=== PATIENT | male | born 1975 | race Caucasian/White ===

== ENCOUNTER 2024-03-20 17:24 | Inpatient (IN) | payer OTHER, SELFPAY ==
[2024-03-20 18:00] VITALS: BMI 37.8
[2024-03-20] MEDS ORDERED: Ondansetron PF 4 MG/2 ML Vial IVP PRN (18:30)
[2024-03-20] MEDS ORDERED: Acetaminophen 650 MG Suppository PR PRN (19:36)
[2024-03-20] MEDS ORDERED: Acetaminophen 325 MG TAB PO PRN (19:36)
[2024-03-20] MEDS: Sodium Chloride 0.9% 1,000 ML IV SCH (20:07)
[2024-03-20] MEDS: Morphine 4 MG/ML VIAL SLOW IVP PRN (20:07)
[2024-03-20] MEDS ORDERED: Ipratropium/Albuterol 3 ML NEB NEB PRN (20:13)
[2024-03-20] MEDS: Pantoprazole 40 MG VIAL IVP SCH (21:55)
[2024-03-21 03:58] LABS: #Eosinphils 0.31 10x3/uL (0.0-0.5); #Neutrophils 5.01 10x3/uL (1.5-8.4); %Basophils 1.2 % (0.0-2.0); %Eosinophils 3.7 % (0.0-6.0); %Lymphocytes 25.7 % (18.0-47.0); %Monocytes 9.5 % (0.0-10.0); %Neutrophils 59.7 % (40.0-75.0); Hematocrit 44.7 % (38.8-50.0); Mean Corpuscular HGB CONC 33.6 g/dL (32.0-36.0); Mean Corpuscular Hemoglobin 30.4 pg (27.0-33.0); Mean Corpuscular Volume 90.7 fL (81.2-95.1); Mean Platelet Volume 9.7 fL (7.4-10.4); Platelet Count 238 10x3/uL (150-450); RBC Distribution Width 12.6 % (11.5-14.5); Red Blood Cell (RBC) Count 4.93 10x6/uL (4.32-5.72); White Blood Cell (WBC) Count 8.4 10x3/uL (3.5-10.5)
[2024-03-21 04:08] LABS: Anion Gap 11 mmol/L (10-20); BUN (Urea Nitrogen) 12 mg/dL (8.9-20.6); Calc. Creatinine Clearance 162 mL/min (70-130); Calcium 8.9 mg/dL (7.8-10.44); Carbon Dioxide 25 mmol/L (22-29); Chloride 103 mmol/L (98-107); Estimated GFR 107; Glucose 104 mg/dL (70-105); Sodium 135 mmol/L (136-145)
[2024-03-21] MEDS: Sodium Chloride 0.9% 1,000 ML IV SCH (07:16)
[2024-03-21] MEDS ORDERED: Lorazepam 2 MG/ML VIAL IM PRN (10:28)
[2024-03-21] MEDS ORDERED: Ondansetron ODT 4 MG TAB PO PRN (10:28)
[2024-03-21] MEDS ORDERED: Electrolyte Replacement Protocol 1 EACH FS SCH (10:30)
[2024-03-21] MEDS ORDERED: Ipratropium/Albuterol 3 ML NEB NEB PRN (10:32)
[2024-03-21] MEDS: Multivit, Therapeutic 1 TAB PO SCH (11:46)
[2024-03-21] MEDS: Thiamine HCl 200 MG/2 ML VIAL SLOW IVP SCH (11:46)
[2024-03-21] MEDS: Folic Acid 1 MG TAB PO SCH (11:46)
[2024-03-21] MEDS: Lactated Ringer's 1,000 ML IV SCH (11:46)
[2024-03-21] MEDS: Lorazepam 1 MG TAB PO PRN (12:13)
[2024-03-21] MEDS ORDERED: hydrALAZINE 25 MG TAB PO PRN (14:52)
[2024-03-21] MEDS: Pantoprazole 40 MG VIAL IVP SCH (20:11)
[2024-03-22] MEDS ORDERED: Morphine 2 MG/ML VIAL SLOW IVP PRN (01:04)
[2024-03-22 04:36] LABS: #Basophils 0.09 10x3/uL (0.0-0.2); #Eosinphils 0.31 10x3/uL (0.0-0.5); #Monocytes 0.85 10x3/uL (0.0-1.1); #Neutrophils 6.28 10x3/uL (1.5-8.4); %Basophils 0.9 % (0.0-2.0); %Eosinophils 3.2 % (0.0-6.0); %Lymphocytes 23.2 % (18.0-47.0); %Monocytes 8.6 % (0.0-10.0); %Neutrophils 63.8 % (40.0-75.0); Hematocrit 46.3 % (38.8-50.0); Hemoglobin 15.4 g/dL (13.5-17.5); Mean Corpuscular HGB CONC 33.3 g/dL (32.0-36.0); Mean Corpuscular Hemoglobin 30.1 pg (27.0-33.0); Mean Corpuscular Volume 90.4 fL (81.2-95.1); Mean Platelet Volume 10.1 fL (7.4-10.4); Platelet Count 249 10x3/uL (150-450); RBC Distribution Width 12.3 % (11.5-14.5); Red Blood Cell (RBC) Count 5.12 10x6/uL (4.32-5.72); White Blood Cell (WBC) Count 9.8 10x3/uL (3.5-10.5)
[2024-03-22 04:49] LABS: ALT (SGPT) 19 U/L (8-55); AST (SGOT) 15 U/L (5-34); Albumin 3.5 g/dL (3.5-5.0); Alkaline Phosphatase 72 U/L (40-110); Anion Gap 12 mmol/L (10-20); BUN (Urea Nitrogen) 8 mg/dL (8.9-20.6); Bilirubin, Total 0.4 mg/dL (0.2-1.2); Calc. Creatinine Clearance 166 mL/min (70-130); Calcium 9.4 mg/dL (7.8-10.44); Carbon Dioxide 27 mmol/L (22-29); Chloride 102 mmol/L (98-107); Estimated GFR 108; Globulin 3.3 g/dL (2.4-3.5); Glucose 104 mg/dL (70-105); Lipase 47 U/L (8-78); Magnesium 1.9 mg/dL (1.6-2.6); Phosphorus 3.4 mg/dL (2.3-4.7); Potassium 3.9 mmol/L (3.5-5.1); Protein, Total 6.8 g/dL (6.0-8.3); Sodium 137 mmol/L (136-145)
[2024-03-22 09:31] VITALS: BP 147/70; TEMP 97.8
[2024-03-22] MEDS: Thiamine HCl 200 MG/2 ML VIAL SLOW IVP SCH (09:33)
[2024-03-22] MEDS: FLUoxetine HCl 20 MG CAP PO SCH (09:35)
[2024-03-22] MEDS: Enoxaparin 40 MG (0.4 mL) SYRINGE SC SCH (09:35)
[2024-03-22] MEDS: Folic Acid 1 MG TAB PO SCH (09:36)
[2024-03-22] MEDS: Multivit, Therapeutic 1 TAB PO SCH (09:36)
[2024-03-23] MEDS ORDERED: Lorazepam 1 MG TAB PO PRN (10:28)
[2024-03-24] MEDS ORDERED: Thiamine 100 MG TAB PO SCH (09:00)
[2024-03-24] MEDS ORDERED: Lorazepam 0.5 MG TAB PO PRN (10:28)
== END 2024-03-22 15:49 | disposition home or self-care (01) | DRG 439 ==
LOC: CSHTELE 17:24 → INTOOBSV 17:24 → OBSVTOIN 03-21 10:27
PROVIDERS: ADMIT Internal Medicine; ATTEND Internal Medicine
DX: K85.20 Alcohol induced acute pancreatitis without necrosis or infection (principal); E87.1 Hypo-osmolality and hyponatremia; K21.9 Gastro-esophageal reflux disease without esophagitis; J44.9 Chronic obstructive pulmonary disease, unspecified; I10 Essential (primary) hypertension; F17.210 Nicotine dependence, cigarettes, uncomplicated; E86.0 Dehydration; E66.9 Obesity, unspecified; F10.20 Alcohol dependence, uncomplicated; F41.9 Anxiety disorder, unspecified; Z68.37 Body mass index [BMI] 37.0-37.9, adult; Z71.42 Counseling for family member of alcoholic; Z79.899 Other long term (current) drug therapy
CPT/HCPCS: 76705; 80048; 80053; 83690; 83735; 84100; 85025; 94760; 96374; 96375; 96376; C9113; G0378; J2270; J3411; J7050; J7120